=== PATIENT | female | born 1975 | race Caucasian/White ===

== ENCOUNTER 2019-05-27 10:10 | Day surgery (SDC) | payer OTHER ==
[~2019-05-27] VITALS: Ht 162.6 cm; Wt 113.4 kg
[2019-05-27] MEDS ORDERED: MIDAZOLAM 2 MG/2 ML VIAL ONE (12:43)
[2019-05-27] MEDS ORDERED: fentaNYL 0.05 MG/ML VIAL ONE (12:43)
[2019-05-27] MEDS ORDERED: LIDOCAINE 2% 100 MG/5 ML UJET TP ONE (12:43)
== END 2019-05-27 14:03 | disposition home or self-care (01) ==
LOC: MMU 10:10 → MDS 10:10
PROVIDERS: ATTEND Internal Medicine Gastroenterology
DX: R19.7 Diarrhea, unspecified (principal); R10.30 Lower abdominal pain, unspecified; F42.9 Obsessive-compulsive disorder, unspecified; M79.7 Fibromyalgia; K50.90 Crohn's disease, unspecified, without complications; G89.29 Other chronic pain; F39 Unspecified mood [affective] disorder; Z80.0 Family history of malignant neoplasm of digestive organs; E66.01 Morbid (severe) obesity due to excess calories; Z98.890 Other specified postprocedural states; Z79.899 Other long term (current) drug therapy; Z90.49 Acquired absence of other specified parts of digestive tract; Z68.41 Body mass index [BMI] 40.0-44.9, adult
CPT/HCPCS: 45330; J3010; J2250

== ENCOUNTER 2020-01-04 15:09 | Emergency (ER) | payer OTHER ==
[~2020-01-04] VITALS: Ht 162.6 cm; Wt 132.1 kg
[2020-01-04 15:15] VITALS: BP 135/78
[2020-01-04] MEDS ORDERED: ONDANSETRON 4 MG ODT ONE (15:26)
--- NOTE | 2020-01-04 15:39 | NUR ---
PATIENT PRESENTS TO ED WITH BILAT SWOLLEN FEET/ EDEMATOUS AND CRACKING SKIN . PT STATES FEET ARE PAINFUL, SHE HAS SEEN HER PCP ONE WEEK AGO FOR PROBLEM BUT STATES IT IS NOT GETTING BETTWER. DENIES N/V/D; SKIN IS PINK/WARM/DRY; AAOX4 WITH EVEN AND STEADY GAIT; LUNGS CLEAR BL; HR EVEN AND REGULAR; PT DENIES ANY FEVER, CP, SOB, OR COUGH AT THIS TIME; PATIENT STATES PAIN OF 8/10 AT THIS TIME; VSS; PATIENT POSITIONED FOR COMFORT; HOB ELEVATED; BEDRAILS UP X2; BED DOWN. ER MD MADE AWARE OF PT STATUS.
--- NOTE | 2020-01-04 15:52 | NUR ---
PATIENT NOT ABLE TO URINATE AT THIS TIME, URINE CUP PROVIDED
[2020-01-04 16:10] LABS: BASOPHILS % (AUTO) 0.4 % (0.0-2.0); EOSINOPHILS # (AUTO) 0.1 K/uL (0-0.4); EOSINOPHILS % (AUTO) 2.1 % (0.0-4.0); LYMPHOCYTES # (AUTO) 1.3 K/uL (2.5-16.5); LYMPHOCYTES % (AUTO) 18.5 % (20.5-51.1); MEAN CORPUSCULAR HEMOGLOBIN 31 pg (27-31); MEAN CORPUSCULAR HGB CONC 33 g/dL (33-37); MEAN CORPUSCULAR VOLUME 91.9 fL (80-94); MONOCYTES # (AUTO) 0.6 K/uL (0.8-1.0); NEUTROPHILS # (AUTO) 4.9 K/uL (1.8-7.7); PLATELET COUNT (AUTO) 295 K/uL (140-450); RED BLOOD CELL COUNT(AUTO) 3.59 MIL/uL (4.20-5.40); WHITE BLOOD COUNT (AUTO) 7.1 K/uL (4.8-10.8)
[2020-01-04 16:28] LABS: ALBUMIN 2.9 g/dL (3.4-5.0); ANION GAP 13.2 (8-16); CARBON DIOXIDE 21.9 mmol/L (21-32); CREATININE 0.9 mg/dL (0.6-1.3); POTASSIUM 4.1 mmol/L (3.5-5.1); TOTAL BILIRUBIN 0.3 mg/dL (0.0-1.0)
[2020-01-04 16:45] LABS: APPEARANCE,URINE CLEAR (CLEAR); BILIRUBIN,URINE NEGATIVE (NEGATIVE); BLOOD, URINE TRACE-I (NEGATIVE); COLOR,URINE YELLOW (YELLOW); LEUKOCYTE ESTERASE ,URINE NEGATIVE (NEGATIVE); NITRITE, URINE NEGATIVE (NEGATIVE); UGLUCOSE NEGATIVE (NEGATIVE)
[2020-01-04 16:59] LABS: WBC,URINE 0-5 /HPF (0-5)
--- NOTE | 2020-01-04 17:39 | NUR ---
Patient discharged with v/s stable. Written and verbal after care instructions given and explained. Patient verbalized understanding. Ambulatory with CANE. All questions addressed prior to discharge. Advised to follow up with PMD.
[2020-01-04 17:40] VITALS: BP 135/78
[2020-01-06] MEDS ORDERED: ONDANSETRON 4 MG ODT PO ONE (07:15)
== END 2020-01-04 17:39 | disposition home or self-care (01) ==
LOC: MED 15:09
DX: E66.01 Morbid (severe) obesity due to excess calories (principal); R22.43 Localized swelling, mass and lump, lower limb, bilateral; J45.909 Unspecified asthma, uncomplicated; Z90.49 Acquired absence of other specified parts of digestive tract
CPT/HCPCS: 36415; 71045; 80053; 81001; 83880; 85025; 99284; Q0162